=== PATIENT | male | born 1970 | race Caucasian/White ===

== ENCOUNTER 2025-03-13 12:46 | Emergency (ER) | payer MEDICAID ==
[~2025-03-13] VITALS: Ht 172.7 cm; Wt 87.0 kg
[2025-03-13 12:48] VITALS: BP 163/93; PULSE 76; RESP 20; TEMP 98; O2SAT 98
== END 2025-03-13 16:14 | disposition left against medical advice (07) ==
LOC: ER 12:46
DX: S61.012A Laceration without foreign body of left thumb without damage to nail, initial encounter (principal); Z53.21 Procedure and treatment not carried out due to patient leaving prior to being seen by health care provider; W26.8XXA Contact with other sharp object(s), not elsewhere classified, initial encounter; Y93.89 Activity, other specified; Y92.89 Other specified places as the place of occurrence of the external cause; Y99.8 Other external cause status